=== PATIENT | female | born 2000 | race Two or more races ===

== ENCOUNTER 2023-07-30 13:28 | Emergency (ER) | payer BC, SELFPAY ==
[2023-07-30 13:28] VITALS: BP 133/88
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
[2023-07-30 14:25] VITALS: BMI 30.8
[2023-07-30] MEDS: NSS 1000 IV (14:29)
[2023-07-30 14:50] LABS: HCG, Serum Qualitative Screen Negative
[2023-07-30] MEDS: TORADOL 15 MG IV (14:50)
[2023-07-30 14:51] LABS: ALT (SGPT) 16 U/L (0-35); AST (SGOT) 20 U/L (14-36); Albumin 4.4 g/dl (3.5-5.0); Alkaline Phosphatase 74 U/L (38-126); Direct Bilirubin 0.5 mg/dl (0.0-0.4); Total Bilirubin 0.6 mg/dl (0.2-1.3); Total Protein 7.2 g/dl (6.3-8.2)
[2023-07-30 15:02] LABS: Monotest Negative (Negative)
[2023-07-30 15:52] VITALS: BP 117/69
[2023-07-30 16:21] VITALS: BP 117/69
== END 2023-07-30 16:22 | disposition home or self-care (01) ==
LOC: EMR 13:28
PROVIDERS: Physician Assistant; EMERGENCY PHYSICIAN Emergency Medicine; FAMILY PHYSICIAN Family Medicine
DX: J02.0 Streptococcal pharyngitis (principal); R10.32 Left lower quadrant pain; R59.0 Localized enlarged lymph nodes; R03.0 Elevated blood-pressure reading, without diagnosis of hypertension; J45.909 Unspecified asthma, uncomplicated; Z91.018 Allergy to other foods
CPT/HCPCS: 99285; 96361; 96374; 74177; 80076; 84703; 86308; Q9967